=== PATIENT | female | born 1990 | race Caucasian/White ===

== ENCOUNTER 2016-12-30 20:33 | Emergency (ER) | payer OTHER ==
[~2016-12-30] VITALS: Ht 165.1 cm; Wt 68.3 kg
[2016-12-30 20:37] VITALS: BP 103/65; PULSE 67; RESP 14; TEMP 97.7; O2SAT 100
--- NOTE | 2016-12-30 21:12 | PD ---
HPI Chief Complaint: GI Complaint Time Seen by Provider: 20:58 Travel History International Travel<30 days: No Contact w/Intl Traveler<30days: No Traveled to known affect area: No History of Present Illness HPI 26-year-old female here for evaluation of lower abdominal pain, and an episode of hyperventilation/bilateral hand numbness/tingling/blurred vision. Patient reports not feeling well for last couple of days. She states that prior to arrival she began to experience extreme lower abdominal pain. This was followed by hyperventilating, bilateral hands numbness/tingling, blurred vision. The symptoms lasted for approximately 15-20 minutes, then gradually began to resolve. Currently the patient is complaining of some mild lower abdominal/suprapubic pain. History of section. No other abdominal surgeries. She is sexually active with one partner and believe she is in a monogamous relationship. No vaginal bleeding or discharge. She has noticed a stronger smell to her urine lately. No dysuria. No fevers. PFSH Past Medical History ?: Unknown LMP: ON BC Social History Tobacco Use: Yes (socially) Allergies-Medications (Allergen,Severity, Reaction): Coded Allergies: Penicillin (Verified Allergy, Severe, Rash, 12/30/16) Reported Meds & Prescriptions Reported Meds & Active Scripts Active Bactrim DS (Sulfamethoxazole-Trimethoprim) 800-160 Mg Tab 1 Tab PO BID Reported Vestura (Drospirenone-Ethinyl Estradiol) 3-0.02 Mg Tab 1 Tab PO DAILY Ambien (Zolpidem Tartrate) 5 Mg Tab 2.5 Mg PO HS PRN Dexedrine (Dextroamphetamine Sulfate) 5 Mg Cap 2.5 Mg PO DAILY Cymbalta DR (Duloxetine HCl) 30 Mg Capdr 30 Mg PO DAILY Review of Systems Except as stated in HPI: all other systems reviewed are Neg Physical Exam Narrative GENERAL: Well-developed, well-nourished, comfortable, no acute distress. SKIN: Focused skin assessment warm/dry. No rash. HEAD: Atraumatic. Normocephalic. EYES: Pupils equal and round. No scleral icterus. No injection or drainage. ENT: Mucous membranes pink and moist. CARDIOVASCULAR: Regular rate and rhythm. RESPIRATORY: No accessory muscle use. Clear to auscultation. Breath sounds equal bilaterally. GASTROINTESTINAL: Abdomen soft, nondistended. Mild suprapubic and right lower quadrant tenderness without peritoneal signs. Rest of abdomen is soft and nontender. Normal bowel sounds. MUSCULOSKELETAL: No obvious deformities. No clubbing. No cyanosis. No edema. NEUROLOGICAL: Awake and alert. No obvious cranial nerve deficits. Motor grossly within normal limits. Normal speech. PSYCHIATRIC: Appropriate mood and affect; insight and judgment normal. Data Data Last Documented VS Vital Signs Date Time Temp Pulse Resp B/P Pulse Ox O2 Delivery O2 Flow Rate FiO2 12/30/16 22:28 83 16 100/72 100 12/30/16 20:37 97.7 Orders Complete Blood Count With Diff (12/30/16 21:06) Comprehensive Metabolic Panel (12/30/16 21:06) Lipase (12/30/16 21:06) Prothrombin Time / Inr (Pt) (12/30/16 21:06) Act Partial Throm Time (Ptt) (12/30/16 21:06) Urinalysis - C+S If Indicated (12/30/16 21:06) Iv Access Insert/Monitor (12/30/16 21:06) Ecg Monitoring (12/30/16 21:06) Oximetry (12/30/16 21:06) Sodium Chloride 0.9% Flush (Ns Flush) (12/30/16 21:15) Sulfamet-Trimeth Ds 800-160 Mg (Bactrim (12/30/16 22:15) Labs Laboratory Tests Test 12/30/16 21:15 White Blood Count 6.4 TH/MM3 Red Blood Count 4.44 MIL/MM3 Hemoglobin 13.4 GM/DL Hematocrit 39.6 % Mean Corpuscular Volume 89.1 FL Mean Corpuscular Hemoglobin 30.1 PG Mean Corpuscular Hemoglobin 33.8 % Concent Red Cell Distribution Width 12.3 % Platelet Count 201 TH/MM3 Mean Platelet Volume 8.6 FL Neutrophils (%) (Auto) 62.8 % Lymphocytes (%) (Auto) 27.4 % Monocytes (%) (Auto) 7.4 % Eosinophils (%) (Auto) 1.8 % Basophils (%) (Auto) 0.6 % Neutrophils # (Auto) 4.0 TH/MM3 Lymphocytes # (Auto) 1.8 TH/MM3 Monocytes # (Auto) 0.5 TH/MM3 Eosinophils # (Auto) 0.1 TH/MM3 Basophils # (Auto) 0.0 TH/MM3 CBC Comment DIFF FINAL Differential Comment Prothrombin Time 9.9 SEC Prothromb Time International 0.9 RATIO Ratio Activated Partial 25.4 SEC Thromboplast Time Urine Color YELLOW Urine Turbidity CLEAR Urine pH 7.0 Urine Specific [place] 1.020 Urine Protein TRACE mg/dL Urine Glucose (UA) NEG mg/dL Urine Ketones TRACE mg/dL Urine Occult Blood NEG Urine Nitrite NEG Urine Bilirubin NEG Urine Leukocyte Esterase NEG Urine RBC 0-3 /hpf Urine WBC 6-8 /hpf Urine Squamous Epithelial 0-5 /hpf Cells Urine Bacteria OCC /hpf Urine Mucus FEW /lpf Microscopic Urinalysis Comment CULT NOT INDICATED Sodium Level 141 MEQ/L Potassium Level 3.7 MEQ/L Chloride Level 106 MEQ/L Carbon Dioxide Level 28.4 MEQ/L Anion Gap 7 MEQ/L Blood Urea Nitrogen 10 MG/DL Creatinine 0.73 MG/DL Estimat Glomerular Filtration 96 ML/MIN Rate Random Glucose 88 MG/DL Calcium Level 8.9 MG/DL Total Bilirubin 0.1 MG/DL Aspartate Amino Transf 19 U/L (AST/SGOT) Alanine Aminotransferase 19 U/L (ALT/SGPT) Alkaline Phosphatase 51 U/L Total Protein 7.5 GM/DL Albumin 3.6 GM/DL Lipase 163 U/L [facility] Medical Decision Making Medical Screen Exam Complete: Yes Emergency Medical Condition: Yes Differential Diagnosis Cystitis, UTI, ovarian cyst, ovarian torsion less likely, , ectopic , appendicitis, panic attack Narrative Course Initial vital signs show heart rate 67, blood pressure 103/65, pulse ox 100% on room air, oral temp of 97.7F. CBC shows WBC 6.4, hemoglobin 13.4, hematocrit 39.6, platelets 201, neutrophils 63%. CMP is unremarkable. Lipase is 163. Urine is negative. UA shows trace ketones, 6-8 WBCs, occasional bacteria, few mucus. Patient and the patient's mom were made aware of all findings. She is resting comfortably. Her symptoms have significantly improved prior to arriving in the emergency department and are basically resolved while here. Abdominal exam shows mild suprapubic tenderness without peritoneal signs. No McBurney's point tenderness. No periumbilical tenderness. Rest of abdomen is soft and nontender. Normal bowel sounds. No hernias. She is sexually active with one partner and is in a monogamous relationship. She denies vaginal bleeding or discharge. Chart review shows that the patient has been seen by [employer] [employer] specialist for cervical changes which the patient states was normal. She has not followed up with an [facility] in several years. It sounds to me as though the patient may have had a ruptured ovarian cyst. Clinically I do not believe she is experiencing ovarian torsion and she is very comfortable here. I also do not believe she has appendicitis based on physical exam and lab findings. My thought process was discussed with both the patient and the patient's mom, and we agreed that imaging is not warranted at this time as I do not believe there is an acute surgical process. At this point I believe the patient is stable for discharge home with outpatient follow-up with an [facility] doctor as well as a primary care physician this week. I will start her on Bactrim for her bacteriuria. I stressed the importance of follow-up with an [facility] doctor given her history of cervical epithelial changes. Patient informed on when to return to the emergency department. She verbalizes understanding and agreement with plan. Diagnosis Primary Impression: Bacteriuria Additional Impression: Abdominal pain Qualified Code: R10.30 - Lower abdominal pain Referrals: Salena Prado MD 3 days [facility] Primary Care Physician 3 days Additional Instructions: Follow-up with a primary care physician this week. Follow-up with an [facility] doctor this week. Return to the emergency department for worsening symptoms or any other concerns. Scripts Sulfamethoxazole-Trimethoprim (Bactrim DS)800-160 Mg Tab1 Tab PO BID #6 TAB Ref 0 Prov:Pierre Hampton MD 12/30/16 Disposition: 01 DISCHARGE HOME Condition: Stable Pierre Hampton MD Dec 30, 2016 21:12
[2016-12-30] MEDS ORDERED: SODIUM CHLORIDE 0.9% FLUSH 10 ML FLUSH IV FLUSH PRN (21:15)
[2016-12-30] MEDS ORDERED: AMBI5TAB PO (21:22)
[2016-12-30] MEDS ORDERED: [UNRECOGNIZED DRUG - CODE] PO (21:22)
[2016-12-30] MEDS ORDERED: DROS3TAB2 PO (21:22)
[2016-12-30] MEDS ORDERED: CYMB30CA PO (21:22)
[2016-12-30 21:32] LABS: BLOOD, URINE NEG (NEG); GLUCOSE,URINE NEG (NEG); KETONE, URINE TRACE mg/dL (NEG); NITRITE,URINE NEG (NEG)
[2016-12-30 21:36] LABS: BASOPHIL % 0.6 % (0.0-2.0); EOSINOPHIL # 0.1 TH/MM3 (0-0.4); EOSINOPHIL % 1.8 % (0.0-4.0); HEMATOCRIT 39.6 % (35.0-46.0); HEMO FLAGS DIFF FINAL; LYMPH % 27.4 % (9.0-44.0); LYMPHOCYTE # 1.8 TH/MM3 (1.0-4.8); MEAN CELL VOLUME 89.1 FL (80.0-100.0); MEAN CORPUSCULAR HEMOGLOBIN 30.1 PG (27.0-34.0); MEAN CORPUSCULAR HGB CONC 33.8 % (32.0-36.0); MONO % 7.4 % (0.0-8.0); NEUT % 62.8 % (16.0-70.0); PLATELET COUNT 201 TH/MM3 (150-450); RED BLOOD COUNT 4.44 MIL/MM3 (4.00-5.30); RED CELL DISTRIBUTION WIDTH 12.3 % (11.6-17.2); WHITE BLOOD COUNT 6.4 TH/MM3 (4.0-11.0)
[2016-12-30 21:45] LABS: CHLORIDE 106 MEQ/L (98-107); POTASSIUM 3.7 MEQ/L (3.5-5.1); SODIUM (NA) 141 MEQ/L (136-145)
[2016-12-30 21:49] LABS: ANION GAP 7 MEQ/L (5-15); BICARBONATE 28.4 MEQ/L (21.0-32.0); BLOOD UREA NITROGEN 10 MG/DL (7-18)
[2016-12-30 21:51] LABS: APTT (PATIENT) 25.4 SEC (24.3-30.1); INTERNATIONAL NORMALIZED RATIO 0.9 RATIO; PROTHROMBIN TIME - PATIENT 9.9 SEC (9.8-11.6)
[2016-12-30 21:52] LABS: ALT (GPT) 19 U/L (10-53); AST (GOT) 19 U/L (15-37); GLOMERULAR FILTRATION RATE 96 ML/MIN (>89)
[2016-12-30 21:54] LABS: TOTAL BILIRUBIN ADULT 0.1 MG/DL (0.2-1.0)
[2016-12-30 21:55] LABS: ALKALINE PHOSPHATASE 51 U/L (45-117)
[2016-12-30 21:56] LABS: MUCUS URINE FEW /lpf (OCC); URINE COLOR YELLOW (YELLW/STRAW)
[2016-12-30 21:57] LABS: BACTERIA, URINE OCC /hpf; SQUAMOUS EPITHELIAL CELL URINE 0-5 /hpf (0-5)
[2016-12-30 21:58] LABS: COMMENT (UR) CULT NOT INDICATED; CULTURE IF INDICATED CULT NOT INDICATED; RBC, URINE 0-3 /hpf (0-3)
[2016-12-30] MEDS ORDERED: SULFAMETHOXAZOLE-TRIMETHOPRIM DS 800-160 MG TAB PO ONE (22:15)
[2016-12-30] MEDS ORDERED: BACT800T5 PO (22:22)
[2016-12-30 22:28] VITALS: BP 100/72
== END 2016-12-30 22:30 | disposition home or self-care (01) ==
LOC: PHED 20:33
DX: R82.71 Bacteriuria (principal); R10.30 Lower abdominal pain, unspecified; R06.4 Hyperventilation; R20.0 Anesthesia of skin; R20.2 Paresthesia of skin; H53.8 Other visual disturbances; Z72.0 Tobacco use
CPT/HCPCS: 80053; 81001; 83690; 85025; 85610; 85730; 99283